=== PATIENT | male | born 1965 | race Caucasian/White ===

== ENCOUNTER 2025-08-08 01:11 | Emergency (ER) | payer MEDICAID ==
[~2025-08-08] VITALS: Ht 170.2 cm; Wt 88.0 kg
[2025-08-08 01:15] VITALS: TEMP 98.7
[2025-08-08] MEDS: ACETAMINOPHEN 500 MG TABLET PO ONE (04:01)
[2025-08-08 04:06] VITALS: BP 140/86; PULSE 84; RESP 18; O2SAT 98
== END 2025-08-08 06:00 | disposition home or self-care (01) ==
LOC: EMS 01:16
DX: G44.209 Tension-type headache, unspecified, not intractable (principal); J45.909 Unspecified asthma, uncomplicated; Z85.118 Personal history of other malignant neoplasm of bronchus and lung; Z59.01 Sheltered homelessness; Z88.0 Allergy status to penicillin
CPT/HCPCS: 99283